=== PATIENT | female | born 2000 | race Caucasian/White ===

== ENCOUNTER 2024-01-29 08:00 | Outpatient (CLI) | payer OTHER | END 2024-01-29 23:59 | disposition home or self-care (01) | LOC: LAB.N 08:00 | PROVIDERS: ATTEND Physician Assistant Medical | DX: Z32.01 Encounter for pregnancy test, result positive (principal) | CPT/HCPCS: 36415; 84702 ==

== ENCOUNTER 2024-02-14 08:00 | Outpatient (CLI) | payer OTHER ==
[2024-02-14 17:35] LABS: BILIRUBIN,URINE NEGATIVE (NEGATIVE); GLUCOSE, URINE (UA) NEGATIVE (NEGATIVE); KETONES,URINE (UA) NEGATIVE (NEGATIVE); LEUKOCYTE ESTERASE, URINE NEGATIVE (NEGATIVE); NITRITE,URINE NEGATIVE (NEGATIVE); OCCULT BLOOD,URINE NEGATIVE (NEGATIVE); PROTEIN,URINE NEGATIVE (NEGATIVE); UROBILINOGEN,URINE 1 (NORMAL) E.U./dL (NORMAL)
[2024-02-14 17:41] LABS: AMORPHOUS SEDIMENT,UR Marked /LPF; BACTERIA,URINE None Seen /HPF (None Seen); CLARITY,URINE CLOUDY (CLEAR); RBC,URINE None Seen /HPF (0-5); SQUAMOUS EPITHELIAL CELL,UR FEW Squamous (<= Few); WBC,URINE 0-3 /HPF (0-5)
== END 2024-02-14 23:59 | disposition home or self-care (01) ==
LOC: LAB.WC 08:00
PROVIDERS: ATTEND Obstetrics & Gynecology
DX: Z34.00 Encounter for supervision of normal first pregnancy, unspecified trimester (principal)
CPT/HCPCS: 81001; 87086

== ENCOUNTER 2024-02-24 19:15 | Outpatient (CLI) | payer OTHER ==
--- NOTE | 2024-02-25 13:05 | Ultrasound Report ---
PROCEDURE: OB 1st Trimester w/TV INDICATIONS: POSITIVE TEST OUTSIDE/PRIOR DATING DATA: Last menstrual period (LMP): 12/27/2023. LMP-based estimated date of delivery (IRVING): 10/02/2024. First dating scan (date and location): 02/24/2024. Estimated date of delivery (IRVING) from first dating scan: 10/02/2024. TECHNIQUE: Real-time scanning was performed of the fetus and maternal pelvic organs, with image documentation. Endovaginal scanning was also performed to better visualize the fetus and maternal ovaries. COMPARISON: None. FINDINGS: Intrauterine gestational sac present. Embryo: No sac and pole are seen with coronal and length of 1.9 cm, compatible with an estimat ed gestational age of 8 weeks 3 days. Heart rate: 169 bpm. Other: Small perigestational sac hemorrhages are seen measuring 1.6 x 1.8 cm and 1.8 x 2.0 cm respect ively. Measurement variability in dating: +/- 4 weeks by LMP, +/- 7 days by mean sac diameter (use before 6 weeks gestation if crown-rump length not able to be measured), +/- 5 days by crown-rump length (6-12 weeks gestation). Maternal organs: Ovaries appear within normal limits. Left ovarian corpus luteal cyst. IMPRESSION: 1.Single live intrauterine . size is concordant with clinical dates. 2.Small perigestational sac hemorrhages measuring 1.8 cm and 2.0 cm. Reviewed by: Venu Pond MD on 02/25/2024 1:03 PM PDT Approved by: Venu Pond MD on 02/25/2024 1:03 PM PDT Station ID: [id number]
== END 2024-02-24 19:16 | disposition home or self-care (01) ==
LOC: DI 19:15
PROVIDERS: ATTEND Nurse Practitioner
DX: O46.8X1 Other antepartum hemorrhage, first trimester (principal); Z3A.08 8 weeks gestation of pregnancy

== ENCOUNTER 2024-03-10 08:00 | Outpatient (CLI) | payer OTHER ==
[2024-03-10 20:41] LABS: CHLAMYDIA TRACHOMATIS DNA NEGATIVE (NEGATIVE); NEISSERIA GONORRHOEAE DNA NEGATIVE (NEGATIVE); TRICHOMONAS VAGINALIS DNA NEGATIVE (NEGATIVE)
== END 2024-03-10 23:59 | disposition home or self-care (01) ==
LOC: LAB.WC 08:00
PROVIDERS: ATTEND Obstetrics & Gynecology
DX: Z11.3 Encounter for screening for infections with a predominantly sexual mode of transmission (principal)
CPT/HCPCS: 87491; 87591; 87661

== ENCOUNTER 2024-04-24 07:52 | Outpatient (CLI) | payer OTHER ==
[2024-04-24 08:10] LABS: BASOPHILS # (AUTO) 0.1 10^3/uL (0.0-0.1); BASOPHILS % (AUTO) 0.4 %; EOSINOPHILS # (AUTO) 0.2 10^3/uL (0.0-0.7); EOSINOPHILS % (AUTO) 1.8 %; HGB - HEMOGLOBIN 13.9 g/dL (12.0-16.0); LYMPHOCYTES % (AUTO) 17.3 %; MEAN CORPUSCULAR HEMOGLOBIN 31.1 pg (27.0-31.0); MEAN CORPUSCULAR HGB CONC 34.8 g/dL (32.0-36.0); MEAN CORPUSCULAR VOLUME 89.5 fL (81.0-99.0); MEAN PLATELET VOLUME 9.7 fL (7.9-10.8); MONOCYTES # (AUTO) 0.6 10^3/uL (0.0-1.0); MONOCYTES % (AUTO) 5.4 %; NEUTROPHILS # (AUTO) 8.5 10^3/uL (1.5-6.6); NEUTROPHILS % (AUTO) 74.7 %; PLT - PLATELET COUNT 324 10^3/uL (130-450); RED BLOOD COUNT 4.47 10^6/uL (4.20-5.40); RED CELL DISTRIBUTION WIDTH 12.8 % (12.0-15.0); WHITE BLOOD COUNT 11.3 x10^3/uL (4.8-10.8)
[2024-04-24 10:04] LABS: ESTIMATED AVERAGE GLUCOSE 80 mg/dL (70-100); HEMOGLOBIN A1c% 4.4 % (4.27-6.07)
[2024-04-25 04:09] LABS: HBsAG SCREEN Negative (Negative); HIV SCREEN 4TH GENERATION Non Reactive (Non Reactive)
[2024-04-25 05:13] LABS: RPR Non Reactive (Non Reactive)
[2024-04-25 12:10] LABS: VARICELLA-ZOSTER AB IGG <135 index (Immune >165)
== END 2024-04-24 07:53 | disposition home or self-care (01) ==
LOC: LAB 07:52
PROVIDERS: ATTEND Obstetrics & Gynecology
DX: Z34.00 Encounter for supervision of normal first pregnancy, unspecified trimester (principal); Z36.89 Encounter for other specified antenatal screening; Z36.0 Encounter for antenatal screening for chromosomal anomalies
CPT/HCPCS: 36415; 81511; 83036; 85025; 86592; 86762; 86787; 86803; 86850; 86900; 86901; 87340; 87389